=== PATIENT | female | born 1990 | race Caucasian/White ===

== ENCOUNTER 2020-10-29 10:11 | Outpatient (CLI) | payer BC, SELFPAY ==
--- NOTE | ~2020-10-29 | XR_ITS ---
XR knee LT min 4V DATE: 10/29/2020 10:29 INDICATION: Left knee pain following trampoline injury TECHNIQUE: Manish Boucher, standing AP and lateral views COMPARISON: None FINDINGS: There is moderate suprapatellar knee joint effusion. No fracture or dislocation, radiopaque intra-articular loose body or chondrocalcinosis. Joint spaces appear relatively preserved. No periosteal reaction or bone destruction. IMPRESSION: Moderate suprapatellar knee joint effusion Reviewed, dictated and finalized at location A. [employer]
== END 2020-10-29 10:12 | disposition home or self-care (01) ==
LOC: ANHIMG 10:14
PROVIDERS: PCP Nurse Practitioner Family; Visit Provider Nurse Practitioner Family
DX: M25.562 Pain in left knee (principal); M25.462 Effusion, left knee
CPT/HCPCS: 73564